=== PATIENT | male | born 1980 | race Caucasian/White ===

== ENCOUNTER 2021-12-26 23:41 | Emergency (ER) | payer SELFPAY ==
--- NOTE | 2021-12-26 23:41 | ECG_ITS ---
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 Measurements Intervals [place] Rate: 101 P: 26 AK: 142 QRS: -15 QRSD: 81 T: 22 QT: 329 QTc: 427 Interpretive Statements SINUS TACHYCARDIA No previous ECG available for comparison Electronically Signed On 12-27-2021 13:01:17 CDT by Daniela Rodriguez M.D. [id number]
[2021-12-26 23:50] VITALS: BP 117/81; PULSE 98; RESP 15; TEMP 37.1; O2SAT 94; BMI 28.1
--- NOTE | 2021-12-27 00:15 | XRR_ITS ---
PROCEDURE INFORMATION: Exam: XR Chest Exam date and time: 12/27/2021 12:23 AM Age: 41 years old Clinical indication: Angina; Additional info: Chest pain TECHNIQUE: Imaging protocol: Radiologic exam of the chest. Views: 1 view. COMPARISON: No relevant prior studies available. FINDINGS: Lungs: Unremarkable. No consolidation. Pleural spaces: Unremarkable. No pleural effusion. No pneumothorax. Heart/Mediastinum: Unremarkable. No cardiomegaly. Bones/joints: Unremarkable. XR/XR chest 1V portable [id number] IMPRESSION: No acute findings.
[2021-12-27 00:18] LABS: Basophils # 0.1 10^3/uL (0.0-0.1); Basophils % 0.6 %; Eosinophils # 0.1 10^3/uL (0.0-0.8); Eosinophils % 1.3 %; Hematocrit 48.7 % (42.0-52.0); Hemoglobin 17.4 g/dL (11.7-16.6); Lymphocytes # 4.3 10^3/uL (0.8-4.8); Lymphocytes % 39.1 %; Mean Corpuscular HGB Conc 35.7 g/dL (30.0-36.0); Mean Corpuscular Hemoglobin 31.9 pg (28.0-34.0); Mean Corpuscular Volume 89.4 fl (80-94); Mean Platelet Volume 8.9 fL (7.4-10.4); Monocytes # 0.6 10^3/uL (0.2-0.9); Monocytes % 5.4 %; Neutrophils % 53.2 %; Nucleated Red Blood Cells % 0 %; Platelet Count 261 10^3/cmm (130-400); Red Blood Count 5.45 10^6/uL (4.1-5.3); Red Cell Distribution Width 11.7 % (12.1-15.1); White Blood Count 11.1 10^3/uL (4.0-10.0)
[2021-12-27 00:36] LABS: Alanine Aminotransferase 50 U/L (0-41); Albumin Level 4.7 g/dL (3.5-5.2); Alkaline Phosphatase 90 IU/L (40-130); Anion Gap 19.9 (5-19); Aspartate Amino Transferase 28 U/L (0-40); Blood Urea Nitrogen 12 mg/dL (6-20); Calcium 8.3 mg/dL (8.5-10.5); Carbon Dioxide 20 mmol/L (22-29); Chloride 104 mmol/L (98-107); Globulin 2.8 g/dL (1.3-4.6); Glomerular Filtration Rate 148.5 mL/min (90-130); Glucose 91 mg/dL (65-115); Osmolality Calculated 289 mOsm/kg (285-295); Potassium 3.9 mmol/L (3.5-5.1); Sodium 140 mmol/L (136-145); Total Bilirubin 0.4 mg/dL (0.15-1.2); Total Protein 7.5 g/dL (6.6-8.7); Troponin(5th) Baseline 6 ng/L (0-15)
[2021-12-27 01:37] VITALS: BP 109/61; PULSE 76; RESP 14; O2SAT 95
--- NOTE | 2021-12-27 01:41 | ECG_ITS ---
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 Measurements Intervals [place] Rate: 74 P: 43 SD: 147 QRS: -7 QRSD: 76 T: 19 QT: 369 QTc: 410 Interpretive Statements SINUS RHYTHM LOW QRS VOLTAGE IN PRECORDIAL LEADS [QRS DEFLECTION < 1.0 mV IN CHEST LEADS] No previous ECG available for comparison Electronically Signed On 12-27-2021 13:06:30 CDT by Daniela Rodriguez M.D. [id number]
[2021-12-27 02:48] LABS: Troponin 5 2HR Delta 0 ABS# (0-10)
--- NOTE | 2021-12-27 03:02 | W.ED.CHESTPA ---
HPI - Chest Pain General: Chief Complaint: Chest Pain Stated Complaint: CP Time Seen by Provider: 12/27/21 00:05 History of Present Illness: 41-year-old gentleman with a history of prior episodes of chest pain. He tells me he has been worked up in the past, with a angiogram and echo around 6 months ago. Nothing was found on the angiogram, but multiple PVCs were found on a 24-hour Holter monitor. These had been treated with metoprolol and atorvastatin. These were removed after his negative angiogram. He has been relatively well for the past several months, but marcella experienced significant chest pain radiating into his left arm and making it go numb. He says it was like a 3000 pound elephant sitting on his chest. Symptoms are resolved currently. He denies recent illness including fever, cough, leg swelling, etc. he notes that also louisight, he had 3 very short seizures. 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 He has not had a seizure in a while. Family notes that these were less than 1 minute to 1 minute episodes of full body shaking with unresponsiveness. The patient does not remember the episodes, however was not overly confused following them. He is back to baseline in terms of mental status currently. MD complaint: chest pain Pertinent past history: other Onset (ago): hour(s) Timing of current episode: now resolved Prior episodes: Yes Onset: during rest Pain location: substernal Pain radiation: left arm Severity: moderate Quality: aching and heaviness Relieving factors: nothing Exacerbating factors: nothing Associated symptoms: Reports dyspnea and palpitations; Deny abdominal pain, diaphoresis, fever(s), leg edema, nausea or vomiting Treatment prior to arrival: none Review of Systems Const: Denies: fever(s) or diaphoresis Eyes: Denies: change in vision ENMT: Denies: throat pain Card: Reports: chest pain and palpitations Resp: Reports: dyspnea; Denies: productive cough or non-productive cough GI: Denies: abdominal pain, nausea or vomiting Musc: Denies: neck pain or back pain Neuro: Reports: numbness in extremities (Left upper, now) and seizure-like activity (As above); Denies: headache(s) Physical Exam Const: COMMON NORMALS: no acute distress and alert GENERAL APPEARANCE: cooperative and comfortable; not ill appearing and not frail appearing HENMT: COMMON NORMALS: normocephalic, atraumatic, hearing grossly normal bilaterally and Normal external nose present HEAD & SCALP: normocephalic and atraumatic FACE & SINUS: normal facial exam and face symmetric NOSE: Normal external nose present and Normal nares present Eye: COMMON NORMALS: Equal, round and reactive pupils present and EOMs intact bilaterally PUPIL: Yes Equal, round and reactive pupils present Neck/C-Spine: CERVICAL SPINE: Yes cervical ROM normal Chest: COMMONS NORMALS: normal inspection of the chest CHEST: Yes Symmetrical chest wall rise Resp: COMMON NORMALS: normal respiratory effort, No use of accessory muscles and clear to auscultation bilaterally AUSCULTATION: clear to auscultation bilaterally Cardio: COMMON NORMALS: regular rate and regular rhythm RATE: regular rate RHYTHM: regular rhythm GI: COMMON NORMALS: Normal to inspection, nondistended, normoactive bowel sounds present, Soft to palpation and non-tender PALPATION: Yes Soft to palpation Extremity: COMMON NORMALS: no pedal edema Neuro: STEVE COMA SCALE: document GCS findings Steve coma scale eye opening: Spontaneous Steve coma scale verbal response: Orientated [place] coma scale motor response: Obey commands [place] coma scale total score: 15 SENSORIUM/ORIENTATION: Yes alert CRANIAL NERVES: Yes CN normal except as noted SPEECH: speech normal MOTOR EXAM: No Tremors during motor activity present Psych: COMMON NORMALS: mental status grossly normal Skin: NARRATIVE SKIN EXAM: Mild sunburn to both shoulder Course Vital Signs: Vital signs: Vital Signs Temperature 98.7 F 12/26/21 23:50 Pulse Rate 76 12/27/21 01:37 Respiratory Rate 14 12/27/21 01:37 Blood Pressure 109/61 12/27/21 01:37 Pulse Oximetry 95 12/27/21 01:37 MDM - Chest Pain Medical Decision Making White blood cell count is 11.1. Hemoglobin is 17.4. Bicarbonate level is 20 labs are otherwise benign. Troponin is 6 at 0 hours, and remains 6 at 2 hours. EKG shows a sinus rhythm with a normal axis. Initially tachycardic, no longer at [address] changes. Intervals are normal. Chest x-ray is normal. Oxygen saturations are normal as well. Pain is resolved. The patient wishes to go home, as it is Father's Day, and wants to see his children. He is back to baseline mental status walker. He will be allowed discharge Lab Data : 12/27/21 00:05 12/27/21 00:05 Radiology Impressions Chest X-Ray 12/27/21 00:15 IMPRESSION: No acute findings. Laboratory Results WBC 11.1 10^3/uL (4.0-10.0) H 12/27/21 00:05 RBC 5.45 10^6/uL (4.1-5.3) H 12/27/21 00:05 Hgb 17.4 g/dL (11.7-16.6) H 12/27/21 00:05 Hct 48.7 % (42.0-52.0) 12/27/21 00:05 MCV 89.4 fl (80-94) 12/27/21 00:05 MCH 31.9 pg (28.0-34.0) 12/27/21 00:05 MCHC 35.7 g/dL (30.0-36.0) 12/27/21 00:05 RDW 11.7 % (12.1-15.1) L 12/27/21 00:05 Plt Count 261 10^3/cmm (130-400) 12/27/21 00:05 MPV 8.9 fL (7.4-10.4) 12/27/21 00:05 Neut % (Auto) 53.2 % 12/27/21 00:05 Lymph % (Auto) 39.1 % 12/27/21 00:05 [place] % (Auto) 5.4 % 12/27/21 00:05 Eos % (Auto) 1.3 % 12/27/21 00:05 Baso % (Auto) 0.6 % 12/27/21 00:05 Neut # (Auto) 5.90 10^3/uL (1.8-7.7) 12/27/21 00:05 Lymph # (Auto) 4.3 10^3/uL (0.8-4.8) 12/27/21 00:05 [place] # (Auto) 0.6 10^3/uL (0.2-0.9) 12/27/21 00:05 Eos # (Auto) 0.1 10^3/uL (0.0-0.8) 12/27/21 00:05 Baso # (Auto) 0.1 10^3/uL (0.0-0.1) 12/27/21 00:05 Nucleated RBC % (auto) 0 % 12/27/21 00:05 Nucleated RBCs # 0.0 /100WBC 12/27/21 00:05 Sodium 140 mmol/L (136-145) 12/27/21 00:05 Potassium 3.9 mmol/L (3.5-5.1) 12/27/21 00:05 Chloride 104 mmol/L (98-107) 12/27/21 00:05 Carbon Dioxide 20 mmol/L (22-29) L 12/27/21 00:05 Anion Gap 19.9 (5-19) H 12/27/21 00:05 BUN 12 mg/dL (6-20) 12/27/21 00:05 Creatinine 0.6 mg/dL (0.7-1.2) L 12/27/21 00:05 GFR Calculation 148.5 mL/min (90-130) H 12/27/21 00:05 Glucose 91 mg/dL (65-115) 12/27/21 00:05 Calculated Osmolality 289 mOsm/kg (285-295) 12/27/21 00:05 Calcium 8.3 mg/dL (8.5-10.5) L 12/27/21 00:05 Total Bilirubin 0.4 mg/dL (0.15-1.2) 12/27/21 00:05 AST 28 U/L (0-40) 12/27/21 00:05 ALT 50 U/L (0-41) H 12/27/21 00:05 Alkaline Phosphatase 90 IU/L (40-130) 12/27/21 00:05 Troponin T Baseline 6 ng/L (0-15) 12/27/21 00:05 Troponin T 120 Minute 6.00 ng/L (0-15) 12/27/21 02:20 Delta Troponin T 0 ABS# (0-10) 12/27/21 02:20 Total Protein 7.5 g/dL (6.6-8.7) 12/27/21 00:05 Albumin 4.7 g/dL (3.5-5.2) 12/27/21 00:05 Globulin 2.8 g/dL (1.3-4.6) 12/27/21 00:05 Discharge Plan Discharge Patient Disposition: Home Clinical Impression: Chest pain Condition: Stable Prescriptions: New metoprolol tartrate 25 mg tablet 25 mg PO BID Qty: 60 0RF Discharge Orders: Discharge ED (Routine); Ordered 12/27/21 Ordered By: Perry Brock Patient Instructions: Chest Pain (ED) Activity Restrictions/Additional Instructions: If you have remained symptomatic with extra heartbeats, you may fill the prescription and use it. Return for repeated episodes of chest pain, shortness of breath, or any other concerning symptoms. Return also for any repeated episodes of seizure. Stay in a cool environment for at least the next 24 hours. Hydrate. Follow-up with your doctor this coming week. Coding Level of Care Code ED Assurance Manager Insurance for Laura Fwd Exam Comprehensive
== END 2021-12-27 03:34 | disposition home or self-care (01) ==
PROVIDERS: Physician Assistant; Emergency Provider Emergency Medicine
DX: R07.9 Chest pain, unspecified (principal)
CPT/HCPCS: 71045; 80053; 84484; 85025; 93005; 99283